=== PATIENT | female | born 1980 | race Caucasian/White ===

== ENCOUNTER 2019-12-30 15:38 | Emergency (ER) | payer MEDICAID ==
[~2019-12-30] VITALS: Ht 160 cm; Wt 91.0 kg
[2019-12-30] MEDS ORDERED: TETANUS, DIPHTHERIA, PERTUSSIS VAC/PF 0.5ML (>7YR OLD) IM ONE (16:30)
[2019-12-30] MEDS ORDERED: IBUPROFEN 600MG TABLET PO ONE (16:30)
[2019-12-30 16:51] VITALS: BP 112/62
== END 2019-12-30 16:53 | disposition home or self-care (01) ==
LOC: ER 15:38
DX: S91.352A Open bite, left foot, initial encounter (principal); W54.0XXA Bitten by dog, initial encounter; Y93.89 Activity, other specified; Y92.89 Other specified places as the place of occurrence of the external cause; Y99.8 Other external cause status
CPT/HCPCS: 81025; 90471; 90715; 99283

== ENCOUNTER 2025-01-07 12:08 | Emergency (ER) | payer MEDICAID ==
[~2025-01-07] VITALS: Ht 160 cm; Wt 77.0 kg
[~2025-01-07 12:08] MED LIST: HYDR-4001 PO; ONDA-239 PO
[2025-01-07 12:16] VITALS: TEMP 36.8; O2SAT 99
[2025-01-07] MEDS ORDERED: TETRACAINE 0.5% OPHTH DROPS 4ML BOTHEYE ONE (12:30)
[2025-01-07] MEDS ORDERED: FLUORESCEIN SODIUM 1MG/STRIP BOTHEYE ONE (12:30)
[2025-01-07 15:44] LABS: PLATELET 410 x1000/uL (130-400); RED BLOOD CELL COUNT 4.17 mill/uL (4.2-5.4); RED CELL DISTRIBUTION WIDTH 20.1 % (11.6-14.6)
[2025-01-07 15:56] LABS: CREATININE 0.7 mg/dL (0.6-1.0)
[2025-01-07 15:57] LABS: UREA NITROGEN BLOOD 12 mg/dL (9-23)
[2025-01-07] MEDS: FLUORESCEIN SODIUM 1MG/STRIP BOTHEYE SCH (16:15)
[2025-01-07] MEDS: TETRACAINE 0.5% OPHTH DROPS 4ML BOTHEYE SCH (16:15)
[2025-01-07] MEDS: TETRACAINE 0.5% OPHTH DROPS 4ML RIGHTEYE ONE (18:30)
[2025-01-07] MEDS: FLUORESCEIN SODIUM 1MG/STRIP RIGHTEYE ONE (18:30)
[2025-01-07] MEDS ORDERED: SULF15DR26 RIGHTEYE (19:16)
[2025-01-07 19:32] VITALS: BP 167/61; PULSE 74; RESP 16; O2SAT 100
== END 2025-01-07 19:33 | disposition home or self-care (01) ==
LOC: ER 12:08
DX: H57.11 Ocular pain, right eye (principal); F10.90 Alcohol use, unspecified, uncomplicated; Z79.899 Other long term (current) drug therapy
CPT/HCPCS: 99285; 70481; 80048; 81025; 85027; 36415; Q9967; 99284